=== PATIENT | female | born 1995 | race Caucasian/White ===

== ENCOUNTER → 2024-05-16 16:16 | Outpatient (CLI) | payer OTHER, SELFPAY ==
--- NOTE | 2024-05-16 16:20 | DI.US.S_ITS ---
PROCEDURE: US OB <= 14 WEEKS FETUS INDICATIONS: DATING AND VIABILITY OUTSIDE/PRIOR DATING DATA: Last menstrual period (LMP): 03/29/2024 LMP-based estimated date of delivery (ROXANE): 01/03/2025 First dating scan (date and location): 05/16/2024 Estimated date of delivery (ROXANE) from first dating scan: 01/06/2025 TECHNIQUE: Real-time scanning was performed of the fetus and maternal pelvic organs, with image documentation. COMPARISON: None. FINDINGS: Embryo: Single intrauterine gestational sac is seen with fetus and yolk sac seen. [place]-rump length measures 0.6 cm. Estimated gestational age based on current study is 6 weeks, 3 days. Heart rate: 120 beats per minute. Maternal organs: Right-sided corpus luteum is seen measures 2.1 x 1.7 x 1.9 cm in size. Left ovary is within normal limits. IMPRESSION: 1. Single live intrauterine gestation with fetus and yolk sac seen. heart rate is 120 beats per minute. Estimated gestational age is 6 weeks, 3 days. 2. Corpus luteum is seen in right ovary as above. We strive to produce accurate, complete, and clear reports of imaging services. To assist us in improving patient care, this report was composed using standard report templates and voice recognition software. Therefore, it may contain abnormal punctuation, insertions and/or omissions. Occasional wrong-word or sound-alike substitutions may occur. Though we review the report and make efforts to correct it, we do recommend that the report be read carefully in proper context to recognize any text inaccuracies. Dictated by: Danish Rodgers M.D. on 05/17/2024 at 12:04 Approved by: Danish Rodgers M.D. on 05/17/2024 at 12:06
== END ==
PROVIDERS: Referring Provider Nurse Practitioner Obstetrics & Gynecology; Visit Provider Nurse Practitioner Obstetrics & Gynecology
DX: O26.851 Spotting complicating pregnancy, first trimester (principal); O34.81 Maternal care for other abnormalities of pelvic organs, first trimester; N83.11 Corpus luteum cyst of right ovary; Z3A.01 Less than 8 weeks gestation of pregnancy
CPT/HCPCS: 76801; 76817

== ENCOUNTER → 2024-08-21 12:48 | Outpatient (CLI) | payer OTHER, SELFPAY ==
--- NOTE | 2024-08-21 | DI.US.S_ITS ---
PROCEDURE: US OB >= 14 WEEKS FETUS INDICATIONS: 20 week anatomy scan OUTSIDE/PRIOR DATING DATA: Last menstrual period (LMP): 03/29/2024 LMP-based estimated date of delivery (ROXANE): 01/03/2025 First dating scan (date and location): 05/16/2024 Estimated date of delivery (ROXANE) from first dating scan: 01/06/2025 The calculations are made using the clinical ROXANE of 01/03/2025. TECHNIQUE: Real-time scanning was performed of the fetus, with image documentation and biometric measurements. Endovaginal scanning: Not performed. COMPARISON: [facility], OB <= 14 WEEKS FETUS, 05/16/2024, 16:28. FINDINGS: General: A single living intrauterine gestation is present. Presentation: Vertex Placenta: Placental position is posterior, without previa. Amniotic fluid index: 12.0 cm, normal range is 5-24 cm. Single deepest vertical pocket is 3.5 cm. heart rate: 137 beats per minute. Maternal cervical canal: 3.2 cm long. Normal lower limit is 2.5 cm. biometrics: Biparietal diameter: 4.6 cm, 19 weeks 5 days Head circumference: 17.1 cm, 19 weeks 5 days Abdominal circumference: 15.4 cm, 20 weeks 4 days Femur length: 3.7 cm, 21 weeks 5 days Clinically estimated gestational age: 20 weeks 5 days Composite gestational age from present scan: 20 weeks 3 days Estimated weight and percentile: 389 g, 59th percentile Anatomic survey: Neuro: Ventricles are non-dilated at less than 10 mm. Cisterna magna is normal at 3-11 mm. Cerebellum is normal in size and morphology. Nuchal skin fold: Normal at less than 6 mm between 14-21 weeks gestational age. Face: Nose and lips, facial profile are normal. Spine: No evidence for spina bifida. Heart: 4-chambered heart is present, with normal ventricular outflow tracts. Diaphragm: Diaphragm is intact. Stomach: Left-sided stomach is present. Kidneys: No hydronephrosis. Normal is less than 5 mm in 2nd trimester, less than 7 mm in 3rd trimester. Cord: 3-vessel cord has orthotopic insertion. Bladder: Normal in size. Extremities: All 4 extremities identified. IMPRESSION: 1. Single live intrauterine with appropriate interval growth. 2. anatomic survey is within normal limits. Approved by: Hermilo Forman M.D. on 08/21/2024 at 19:30
== END ==
LOC: US 12:49
PROVIDERS: Referring Provider Advanced Practice Midwife; Visit Provider Advanced Practice Midwife
DX: Z34.92 Encounter for supervision of normal pregnancy, unspecified, second trimester (principal); Z3A.20 20 weeks gestation of pregnancy
CPT/HCPCS: 76811

== ENCOUNTER → 2024-09-17 07:24 | Outpatient (CLI) | payer OTHER, SELFPAY ==
[2024-09-17 08:41] LABS: Hematocrit 35.1 % (36-46); Hemoglobin 12.1 g/dL (12.0-16.0); Mean Corpuscular HGB Conc 34.4 % (30-36); Mean Corpuscular Hemoglobin 30.7 PG (26-34); Mean Corpuscular Volume 89.3 fL (80-100); Platelet Count 338 X10^3/uL (150-400); Red Blood Cell Count 3.93 X10^6/uL (4.0-5.2); Red Cell Distribution Width 13.3 % (11.6-14.8); White Blood Cell Count 8.8 X10^3/uL (4.5-11.0)
[2024-09-17 09:03] LABS: Glucose Fasting 90 mg/dL (70-100)
[2024-09-17 09:32] LABS: Thyroid Stimulating Hormone 2.65 uIU/mL (0.47-4.68)
[2024-09-17 09:33] LABS: Glucose 1 Hour 141 mg/dL (70-170)
[2024-09-17 09:50] LABS: Glucose Tol Interpretation INTERPRETATION
[2024-09-17 11:04] LABS: Glucose 2 Hour 91 mg/dL (70-140)
[2024-09-19 15:30] LABS: Free T4, Direct Thyroxine 1.18 ng/dL (0.78-2.19)
== END ==
PROVIDERS: Referring Provider Nurse Practitioner Obstetrics & Gynecology; Visit Provider Nurse Practitioner Obstetrics & Gynecology
DX: Z34.90 Encounter for supervision of normal pregnancy, unspecified, unspecified trimester (principal); Z13.1 Encounter for screening for diabetes mellitus; E03.9 Hypothyroidism, unspecified; Z3A.26 26 weeks gestation of pregnancy
CPT/HCPCS: 36415; 82951; 82952; 84436; 84439; 84443; 85027

== ENCOUNTER → 2024-12-25 14:19 | Outpatient (CLI) | payer OTHER, SELFPAY ==
--- NOTE | 2024-12-25 14:20 | DI.US.S_ITS ---
PROCEDURE: US OB LIMITED INDICATIONS: GROWTH AND BIOPHYSICAL FOR LGA DOPPLERS IF NEEDED OUTSIDE/PRIOR DATING DATA: Last menstrual period (LMP): 03/29/24. LMP-based estimated date of delivery (ROXANE): 01/03/25 First dating scan (date and location): 05/16/24 Estimated date of delivery (ROXANE) from first dating scan: 01/06/25. The calculations are made using the working ROXANE of 01/03/25. TECHNIQUE: Real-time scanning was performed of the fetus, with image documentation and biometric measurements. Biophysical profile was obtained Endovaginal scanning: No COMPARISON: [facility], OB LIMITED, 12/03/2024, 7:29. FINDINGS: General: A single living intrauterine gestation is present. Presentation: Vertex. Placenta: Placental position is posterior , without previa. Amniotic fluid index: 16.6 cm, normal range is 5-24 cm. Single deepest vertical pocket is 7.2 cm. heart rate: 135 beats per minute. Maternal cervical canal: Not well seen biometrics: Biparietal diameter: 9.2 cm, 37 weeks two days Head circumference: 33.2 cm 37 weeks six days Abdominal circumference: 36.8 cm, 39 weeks five days Femur length: 7.2 cm, 36 weeks six days Clinically estimated gestational age: 38 weeks five days Composite gestational age from present scan: 38 weeks 0 days Estimated weight and percentile: 3534 g, 64th percentile Biophysical profile: Tone: 0 points. Movement: 2 points. Respiration: 0 points. Largest pocket of fluid: 2 points. Umbilical artery Doppler: Ranging from 1.7-2.5. IMPRESSION: Single living intrauterine with estimated weight at the 64th percentile. Abnormal biophysical profile score, 4/8. Composite gestational age is five days behind the estimated gestational age. Normal amniotic fluid volume. Report alert called to the ordering provider. We strive to produce accurate, complete, and clear reports of imaging services. To assist us in improving patient care, this report was composed using standard report templates and voice recognition software. Therefore, it may contain abnormal punctuation, insertions and/or omissions. Occasional wrong-word or sound-alike substitutions may occur. Though we review the report and make efforts to correct it, we do recommend that the report be read carefully in proper context to recognize any text inaccuracies. Dictated by: Jessenia Avalos M.D. on 12/25/2024 at 17:31 Approved by: Jessenia Avalos M.D. on 12/25/2024 at 17:39
== END ==
LOC: US 14:20
PROVIDERS: Referring Provider Advanced Practice Midwife; Visit Provider Advanced Practice Midwife
DX: O26.843 Uterine size-date discrepancy, third trimester (principal); Z3A.38 38 weeks gestation of pregnancy
CPT/HCPCS: 76815; 76820

== ENCOUNTER 2024-12-25 18:56 | Inpatient (IN) | payer OTHER, SELFPAY ==
--- NOTE | 2024-12-25 19:31 | PM.OBHP.1 ---
OB HPI Date/Time Date of admission: 12/25/24 Date Patient Seen: 12/25/24 Time Patient Seen: 21:00 History of Present Condition Chief complaint: NST : 3 Para: 0 Estimated Date of Delivery: 01/03/25 Estimated Gestational Age (weeks): 38w5d Narrative: Phani Arnold is a 29 year old female at 38w5d by LMP with concordant early U/S, presents for evaluation after abnormal BPP 07/24 today. +FM with occasional mild cramping. No vaginal bleeding or leaking of fluid. has been uncomplicated under the care of Marti. Phani is accompanied by her supportive partner, Lee. She is planning a low intervention . Indications Indication for induction OB: other (BPP 48) History of Present care: good care, initiated at week # (9w4d), number of visits (9) and pounds weight gain (52) Dating criteria: LMP confirmed by 1st trimester US Ultrasounds: normal 1st trimester US and normal mid trimester US Obstetrical complications: none Medical complications: none Preadmission Labs Blood type: B (+) positive -: Antibody screen: negative, GBS status: positive, HBsAG: negative, HIV: negative and RPR/VDLR: negative -: Chlamydia screen: not detected and Gonorrhea screen: not detected -: Rubella: immune and Varicella: immune HCT: 35.1 HCAB: negative 3 hr GTT: 2 hr (90, 141, 91) Prior (ies) Hx # Term Pregnancies: 0 Hx # Pregnancies: 0 Number of Living Children: 0 Multiple births: 0 Spontaneous abortions: 2 Ectopic pregnancies: 0 Elective abortions: 0 Evaluation Evaluation Baseline heart rate: 130 Variability: Moderate (6-25) monitor accelerations: Present Monitor Decelerations: Absent Contraction Frequency (minutes): 0 Category of Tracing: Reactive Status: Category l Dilation: 1-2 cm (fingertip) Effacement: 60-70% station: -2 Position of cervix: posterior Consistency: soft Beck score: 6 PFSH Medical History (Updated 12/25/24 @ 19:44 by Cecilia Ramirez CNM) Hx of abnormal cervical Pap smear Social History Smoking Status: Former smoker Meds Home Medications and Allergies Home Medications ?Medication ?Instructions ?Recorded ?Confirmed ?Type aspirin 81 mg chewable tablet 81 mg PO DAILY 12/25/24 12/25/24 History (Vitor Chewable Low Dose Aspirin) vitamin-ferrous fumarate 1 tab PO DAILY 12/25/24 12/25/24 History 28 mg iron-folic acid 800 mcg tablet ( Vitamins with Minerals) Allergies Allergy/AdvReac Type Severity Reaction Status Date / Time Pertussis Vaccines Allergy Unknown Verified 12/25/24 19:39 adhesive tape Allergy Blister Verified 12/25/24 19:39 bee sting Allergy Severe Hives Uncoded 12/25/24 19:39 Review of Systems Review of Systems ROS: Yes All systems reviewed with the patient and are negative except as otherwise documented OB Exam Vital signs Blood Pressure: 135/73 Pulse Rate: 98 Temperature: 97.5 F (temporal) Resp Effort & Inspection: normal respiratory effort and able to speak in complete sentences Auscultation: clear to auscultation bilaterally Cardio Rate: regular rate Rhythm: regular rhythm Heart Sounds: S1 normal and S2 normal Extremities Lower extremity: Yes edema Laterality: bilateral edema degree: 2+ Presentation: vertex Objective Labs 12/25/24 20:06 12/25/24 20:06 Assessment and Plan Assessment and Plan Assessment and Plan narrative: Assessment: Early Term [facility] IOL for concer for status (BPP 4/8) GBS prophylaxis indicated Mild anemia RNST Plan: Counseled on recommendation for IOL for concern for status and Rhylie agreed, informed consent obtained. Discussed options for cervical ripening (Gross vs Cervadil) with associated R/B/A and Rhylie chose a Gross balloon. Admit for IOL and insert gross ballon for mechanical dialtion overnight. Routine labor orders with ampicillin for GBS prophylaxis once in active labor or ROM. NST Q4hr Activity as tolerated. Active management of the third stage of labor. Reassess once balloon is out or at 7am, whichever comes first. Time-Based Coding :: [TOTAL MINUTES] spent with patient and on the chart (including review of chart, obtaining history, exam, reviewing outside data, placing orders, documenting exam and treatment plan, and counseling patient) on [DATE].
[2024-12-25 20:16] LABS: Protein (Total) Urine Random 12 mg/dL (0-12); Protein Creatinine Ratio Urine 0.23 GRAM/24H
[2024-12-25 20:19] VITALS: BP 135/73; PULSE 98; TEMP 36.4
[2024-12-25 20:22] LABS: Add Manual Diff / Slide Review NO; Hematocrit 32.8 % (36-46); Hemoglobin 11.0 g/dL (12.0-16.0); Lymphocytes Absolute Auto 1800 /uL (1100-4500); Mean Corpuscular HGB Conc 33.4 % (30-36); Mean Corpuscular Hemoglobin 28.7 PG (26-34); Mean Corpuscular Volume 85.8 fL (80-100); Platelet Count 342 X10^3/uL (150-400)
[2024-12-25 20:39] LABS: Alanine Aminotransferase 15 IU/L (<35); Albumin 3.5 g/dL (3.5-5.0); Albumin Globulin Ratio 1.1 (1.0-2.8); Alkaline Phosphatase 138 U/L (38-126); Blood Urea Nitrogen 8 mg/dL (7-17); Calcium 9.1 mg/dL (8.4-10.2); Carbon Dioxide 20 mmol/L (22-32); Chloride 106 mmol/L (98-107); Estimated Glomerular Filt Rate > 60 mL/min (>60); Globulin 3.3 g/dL (1.7-4.1); Glucose 98 mg/dL (70-99); HEMOLYSIS < 15 (0-50); Potassium 4.0 mmol/L (3.4-5.1); Sodium 134 mmol/L (137-145); Total Protein 6.8 g/dL (6.3-8.2); Uric Acid 4.6 mg/dL (2.5-6.2)
[2024-12-25 20:55] VITALS: BP 134/77
--- NOTE | 2024-12-26 07:09 | PM.OBPNLAB ---
Date/Time Date Patient Seen: 12/26/24 Time Patient Seen: 07:00 Pain Control Comments: Phani has been feeling stronger, irregular contractions throughout the night. Did not get a long stretch of sleep, but has taken a few naps. Partner remains supportive at her side. VS: 126/55, P 96 bpm, T 36.4 C Temporal Pelvic Exam Dilation (cm): 3.5 station: -2 Amniotic membrane status: Intact Comments: Prieto balloon remains in place, palpated in the os Contractions Date/Time contractions began: 12/26/2024 0000 Monitor mode: External Contraction frequency (min): 4 (2-6) Contraction duration (min): 1 Contraction pattern: Irregular Contraction intensity: Mild Status status: Category l Heart Rate Baseline: 125 Monitor Accelerations: Present Monitor Decelerations: Late (rare) Monitor Variability: Moderate Assessment and Plan Assessment: induction ongoing Plan: continuous present management Comments: Assessment: Early Term [facility] IOL for concern for status (BPP 4/8) GBS prophylaxis indicated Mild anemia Plan: Given that Prieto balloon is nearly out, will continue with this method for cervical ripening. RN to check again at 0800. Discussed starting pitocin for labor progression, once Prieto balloon is out, with associated R/B/A and Rhylie agrees. Routine labor orders with ampicillin for GBS prophylaxis once in active labor or ROM. Continuous monitoring, per pitocin protocol. Activity as tolerated. Active management of the third stage of labor. Reassess in 4-5 hours or sooner, PRN.
--- NOTE | 2024-12-26 12:32 | PM.OBPNLAB ---
Date/Time Date Patient Seen: 12/26/24 Time Patient Seen: 12:32 Pain Control Comments: Phani is resting in bed. She did get about a 1.5 hour nap after we saw her this AM. She is not feeling contractions. is at bedside being supportive. VS: 115/62, P: 104, T: 36.2 C temporal. Pelvic Exam Dilation (cm): 6 Effacement (%): 80 station: -2 Amniotic membrane status: Intact Comments: Prieto balloon removed from vagina prior to CE. Contractions Monitor mode: External Contraction frequency (min): 4 (2-6) Contraction pattern: Irregular Contraction intensity: Mild Status status: Category l Heart Rate Baseline: 135 Monitor Accelerations: Present Monitor Decelerations: Absent Monitor Variability: Moderate Assessment and Plan Assessment: induction ongoing Plan: begin patient augmentation (pitocin per protocol) Comments: Begin GBS prophylaxis once regular contraction pattern is re-established. Reassess in 4-5 hours or sooner, PRN.
[2024-12-26] MEDS: LACTATED RINGERS 1,000 ML 100 ML IV ×2 (13:02→21:13)
[2024-12-26] MEDS: AMPICILLIN 2,000 MG in SODIUM CHLORIDE 0.9% 100 ML 200 MG IV (13:03)
[2024-12-26] MEDS: OXYTOCIN PREMIX 30 UNIT/500 ML PLAST..BAG IV (13:24)
--- NOTE | 2024-12-26 17:17 | P.PNOB_ITS ---
Date/Time Date Patient Seen: 12/26/24 Time Patient Seen: 17:18 Pain Control Comments: Phani is sitting up in bed, she is having some contractions but they do not feel as intense as they did last night with the gross balloon. Her partner is still beside and supportive. VS: BP 118/64, P: 95, T: 36.4 C temporal Pelvic Exam Dilation (cm): 6 Effacement (%): 60 station: -2 Amniotic membrane status: Intact Contractions Monitor mode: External Pitocin rate (mU/min): 9 Contraction frequency (min): 4 (2-6) Contraction duration (min): 1 Contraction pattern: Irregular Contraction intensity: Mild Status status: Category l Heart Rate Baseline: 130 Monitor Accelerations: Present Monitor Decelerations: Absent Monitor Variability: Moderate Assessment and Plan Assessment: induction ongoing Plan: continuous present management Comments: Offered AROM and explained R/B/A, Phani declines at this time. Reassess in 4 hours or sooner PRN
--- NOTE | 2024-12-26 21:11 | PM.OBPNLAB ---
Date/Time Date Patient Seen: 12/26/24 Time Patient Seen: 21:11 Pain Control Comments: Phani is sitting in bed comfortably, and talking. She is having contractions but they are not as intense as they were last night with the gross balloon in place. She did take a nap. Her is still at the bedside and supportive. VS:123/71 P:83 bmp, T:36.3 temporal Pelvic Exam Dilation (cm): 6 Effacement (%): 80 station: -2 Amniotic membrane status: Intact Comments: CE deferred Contractions Monitor mode: External Pitocin rate (mU/min): 18 Contraction frequency (min): 4 (2-6) Contraction pattern: Irregular Contraction intensity: Mild Status status: Category l Heart Rate Baseline: 140 Monitor Accelerations: Present Monitor Decelerations: Absent Monitor Variability: Moderate Assessment and Plan Assessment: induction ongoing Plan: continuous present management Comments: Recommended AROM, Phani declines at this time, she would like to continue with pitocin titration. Encouraged upright movement. Will start ampicillin once she is breathing through contractions or ROM. Reassess in 3-4 hours or sooner PRN.
--- NOTE | 2024-12-27 01:15 | PM.OBPNLAB ---
Date/Time Date Patient Seen: 12/27/24 Time Patient Seen: 01:00 Pain Control Pain control: tolerating well Comments: Phani has been ambulating and trying to be upright and moving since her last exam. Frustrated that contractions remain mild and open to AROM at this time. VS: BP 111/56, HR 88bpm, T 36.4C Temporal Pelvic Exam Dilation (cm): 6 Effacement (%): 80 station: -2 Amniotic membrane status: Ruptured (AROM, clear) Comments: cervix is edematous Contractions Monitor mode: External Pitocin rate (mU/min): 28 Contraction frequency (min): 4 (2-6) Contraction duration (min): 1 Contraction pattern: Irregular Contraction intensity: Mild Status status: Category l Heart Rate Baseline: 140 Monitor Accelerations: Present Monitor Decelerations: Absent Monitor Variability: Moderate Assessment and Plan Assessment: induction ongoing Plan: continuous present management Comments: Reduced pitocin in half to 14mu/min after AROM. Encouraged her to remain upright for the next 30 minutes. Start ampicillin now. If cervix remains puffy at next exam, will give diphenhydramine. Reassess in 4 hours or sooner, PRN.
[2024-12-27] MEDS: AMPICILLIN 1,000 MG in SODIUM CHLORIDE 0.9% 100 ML 200 MG IV ×5 (01:25→18:03)
--- NOTE | 2024-12-27 05:13 | PM.OBPNLAB ---
Date/Time Date Patient Seen: 12/27/24 Time Patient Seen: 04:50 Pain Control Pain control: tolerating well and other Comments: Phani has been breathing and moaning through contractions for about two hours. She tried the tub earlier and said it helped a little bit. Her partner is at the bedside providing support. VS; BP: 113/62, P: 93 bmp, T: 36.6 C temporal Pelvic Exam Dilation (cm): 7 Effacement (%): 80 station: -2 Amniotic membrane status: Ruptured (AROM, clear) Comments: cervix remains edematous Contractions Monitor mode: External Pitocin rate (mU/min): 14 Contraction frequency (min): 4 (2-6) Contraction pattern: Regular Contraction intensity: Strong/Firm Status status: Category l Heart Rate Baseline: 150 Monitor Accelerations: Present Monitor Decelerations: Absent Monitor Variability: Moderate Assessment and Plan Assessment: active labor Plan: continuous present management Comments: Administer diphenhydramine for cervical edema Encouraged RN to continue to titrate pitocin to adequate contraction pattern. Reassess in 4 hours or sooner PRN
[2024-12-27] MEDS: diphenhydrAMINE 50 MG/ML VIAL 25 MG IV (05:31)
[2024-12-27] MEDS: LACTATED RINGERS 1,000 ML 100 ML IV ×2 (07:02→14:11)
--- NOTE | 2024-12-27 08:08 | PM.OBPNLAB ---
Date/Time Date Patient Seen: 12/27/24 Time Patient Seen: 08:00 Pain Control Pain control: epidural Comments: Comfortable after epidural placement. Requested epidural around 6am and difficult placement necessitated 3 attempts and turning off the pitocin. Continues to leak clear fluid. VS: BP 110/59, HR 95bpm, T 36.7C Temporal Pelvic Exam Dilation (cm): 6 Effacement (%): 80 station: -2 Amniotic membrane status: Leaking (clear) Comments: ROM x 7 hour without sx of infection. GBS adequately treated. Contractions Monitor mode: External Pitocin rate (mU/min): 0 Contraction frequency (min): 4 (3-6) Contraction duration (min): 1 Contraction pattern: Regular Contraction intensity: Moderate Status status: Category l Heart Rate Baseline: 155 Monitor Accelerations: Present Monitor Decelerations: Absent Monitor Variability: Moderate Assessment and Plan Assessment: active labor Plan: continuous present management Comments: Restart pitocin titration at 3 mu/min Recommend frequent position changes with peanut ball Prieto placed after epidural Reassess in 4 hours or sooner PRN Will consider IUPC if no change at next exam
--- NOTE | 2024-12-27 09:32 | PM.AN.REGBLK ---
[facility] <Lisa Parker, DO - Last Filed: 12/28/24 08:12> Pre-procedure Procedure: Continuous Lumbar Epidural for L&D (with dural puncture) Attending OB provider: Cecilia Ramirez PMH/ROS narrative: 29yo induced due to BPP results, now in labor at 7 cm on last check and requesting epidural. BMI 46. See pre-anesthesia evaluation for further details. ASA Class: III Labs: Hct 32.8 % (36-46) L 12/25/24 20:06 Plt Count 342 X10^3/uL (150-400) 12/25/24 20:06 Medications: Current Medications Generic Name Dose Route Start Last Admin Trade Name Freq PRN Reason Stop Dose Admin Calcium Carbonate 1,000 mg 12/25/24 19:28 Calcium Carbonate 500 Mg Tab PO Q2HR PRN Dyspepsia Carboprost Tromethamine 250 mcg 12/25/24 19:28 Carboprost 250 Mcg/Ml Ampul IM Q90M PRN Bleeding Diphenhydramine HCl 25 mg 12/27/24 07:57 Diphenhydramine 50 Mg/Ml Vial IV Q10M PRN Pruritis Ephedrine Sulfate 10 mg 12/27/24 07:57 Ephedrine 50 Mg/Ml Vial IV Q5M PRN Blood pressure decrease more than 20% of baseline. Fentanyl 100 mcg 12/25/24 19:28 Fentanyl 100 Mcg/2 Ml Inj IV Q1H PRN Pain, Severe (7-10) Oxytocin/Lactated Ringer's 30 unit in 500 mls @ 200 mls/hr 12/25/24 19:28 Oxytocin Premix IV CONT PRN Bleeding Protocol Tranexamic Acid 1,000 mg/ 100 mls @ 600 mls/hr 12/25/24 19:28 Sodium Chloride IV NOW PRN Bleeding Ampicillin Sodium 1,000 mg/ 100 mls @ 200 mls/hr 12/25/24 23:30 12/27/24 05:25 Sodium Chloride IV 200 mls/hr Q4H RUBI Administration Oxytocin/Lactated Ringer's 30 unit in 500 mls @ 2 mls/hr 12/26/24 13:22 12/26/24 13:24 Oxytocin Premix IV 2 milliunit/min TITRATE RUBI 2 mls/hr Protocol Administration 2 MILLIUNIT/MIN FENT 2MCG/ML BUPIV 0.125% EPI 200 mcg in 100 mls @ 6 mls/hr 12/27/24 08:00 Fentanyl/Bupiv/Ns 2mcg/Ml - 0.125% EPIDURAL CONT RUBI Lidocaine HCl 20 ml 12/25/24 19:28 Lidocaine 1% 20 Ml INJ INTRA-OP PRN Post Delivery Methylergonovine Maleate 0.2 mg 12/25/24 19:28 Methylergonovine 0.2 Mg Tablet PO Q6HR PRN Heavy Bleeding Methylergonovine Maleate 0.2 mg 12/25/24 19:28 Methylergonovine 0.2 Mg/Ml Vial IM NOW PRN Bleeding Metoclopramide HCl 10 mg 12/27/24 07:58 Metoclopramide 10 Mg/2 Ml Inj IV 12/28/24 07:58 Q4H PRN Nausea Mineral Oil 30 ml 12/25/24 19:28 Mineral Oil 30 Ml Udc TOP PRN PRN Version Misoprostol 800 mcg 12/25/24 19:28 Misoprostol 200 Mcg Tablet SD NOW PRN Bleeding Misoprostol 400 mcg 12/25/24 19:28 Misoprostol 200 Mcg Tablet SL NOW PRN Bleeding Nalbuphine HCl 2.5 mg 12/27/24 07:57 Nalbuphine 20 Mg/Ml Ampul IV Q10M PRN Pruritis Naloxone HCl 0.2 mg 12/25/24 19:28 Naloxone 0.4 Mg/Ml Vial IV Q2MIN PRN Opiate Reversal Ondansetron HCl 4 mg 12/25/24 19:28 Ondansetron 4 Mg/2 Ml Inj IV Q4HR PRN Nausea And Vomiting Ondansetron HCl 4 mg 12/27/24 07:58 Ondansetron 4 Mg/2 Ml Inj IV 12/28/24 07:58 Q6HR PRN Nausea Oxytocin 10 unit 12/25/24 19:28 Oxytocin 10 Unit/Ml Vial IM NOW PRN Bleeding Allergies: Allergies Allergy/AdvReac Type Severity Reaction Status Date / Time Pertussis Vaccines Allergy Unknown Verified 12/26/24 16:04 adhesive tape Allergy Blister Verified 12/26/24 16:04 bee sting Allergy Severe Hives Uncoded 12/26/24 16:04 Procedure Insertion date: 12/27/24 Insertion time: 07:22 Prep/Local: 1% lidocaine (Chloraprep) Interspace: L3-4 Patient position: sitting Needle: 18 gauge Hustead (27g Pencan for dural puncture) Loss of resistance with: saline WAYNE at (cm): 8 Catheter placed at SKIN (cm): 15 Catheter in SPACE (cm): 7 Insertion: No CSF, No Blood, No Paresthesia with insertion, No Paresthesia with injection and No Test dose reaction Initial Medications TEST DOSE time: 07:23 TEST DOSE: 1.5% lidocaine with epinephrine 1:200k (mL): 3 BOLUS DOSE time: 07:24 BOLUS DOSE (mL): 2 BOLUS DOSE med: other (Same as test dose via epidural. Also gave 0.5 ml of 2% lido intrathecally. ) Infusion INFUSION: 0.125% bupivacaine and with fentanyl 2 mcg/mL Initial rate (mL/hr): 8 Subsequent interventions: Difficult placement requiring three attempts with multiple redirections. However, pt felt comfortable soon after placement, able to move BLE, and fell asleep before epidural infusion started at 07:40. Uziel 14:52 - Pt requests epidural bolus. On arrival, she is moaning softly near constantly; I'm unable to tell when she is having a contraction, but she appears uncomfortable. She reports the epidural is somewhat one-sided, and she feels more pain on the left. She is left side down during my visit. Epidural bolused with 10 ml of 2% lido PF. Infusion pump increased from 8 to 10 ml/hr. Uziel Post-procedure Anesthesia date START: 12/27/24 Anesthesia time START: 06:40 Anesthesia date END: 12/28/24 Anesthesia time END: 19:55 Post-procedure Anesthesia Assessment: Yes CV function: HR/BP stable, Yes Resp function: RR/sat/airway adequate, Yes Post-op hydration adequate, Yes Pain control adequate, Yes Nausea & vomiting absent, Yes Temperature > 36 C, Yes Mental status appropriate and No Anesthesia complications <Gilma Dunham CRNA - Last Filed: 01/17/25 17:52> Infusion Subsequent interventions: Difficult placement requiring three attempts with multiple redirections. However, pt felt comfortable soon after placement, able to move BLE, and fell asleep before epidural infusion started at 07:40. Uziel 14:52 - Pt requests epidural bolus. On arrival, she is moaning softly near constantly; I'm unable to tell when she is having a contraction, but she appears uncomfortable. She reports the epidural is somewhat one-sided, and she feels more pain on the left. She is left side down during my visit. Epidural bolused with 10 ml of 2% lido PF. Infusion pump increased from 8 to 10 ml/hr. Uziel 1700 Pt left side down moaning. States has left anterior low abdominal pain. 10cc 2% lido bolus given. Epidural infusion increased to 12cc/h 1830 Pt has just started pushing-is uncomfortable continues to be left sided anterior low abdominal pain bolus given-100mcg fentanyl and 5cc 2%lido
--- NOTE | 2024-12-27 12:09 | PM.OBPNLAB ---
Date/Time Date Patient Seen: 12/27/24 Time Patient Seen: 12:00 Pain Control Pain control: epidural Comments: Phani has been doing position changes Q30min. She is comfortable with the epidural but it is working more on her right side than left, using PCEA. Her partner is by her side being supportive. VS: BP 98/54, P: 85, T 36.4C temporal Pelvic Exam Dilation (cm): 6 Effacement (%): 90 station: -2 Amniotic membrane status: Leaking (clear) Comments: coronal suture palpated on exam with parietal bones overriding the frontal bones, ROT/ROP position Contractions Monitor mode: External Pitocin rate (mU/min): 17 Contraction frequency (min): 4 (untraceable intermittently due to position) Contraction pattern: Irregular Contraction intensity: Moderate Status status: Category l Heart Rate Baseline: 135 Monitor Accelerations: Present Monitor Decelerations: Absent Monitor Variability: Moderate Assessment and Plan Assessment: active labor, induction ongoing and other ( malpresentation, ROM x 11hrs without sx of infection) Plan: continuous present management Comments: Continue pitiocin titration per protocol Recommend more exaggerated position changes: left side lying release and left exaggerated omalley Consider IUPC if toco remains difficult to trace contractions Reassess in 4 hours or sooner PRN
[2024-12-27] MEDS: FENT 2MCG/ML BUPIV 0.125% EPI 200 MCG/100 ML PLAST..BAG 6 MCG EPIDURAL (14:12)
--- NOTE | 2024-12-27 15:00 | PM.OBPNLAB ---
Date/Time Date Patient Seen: 12/27/24 Time Patient Seen: 15:00 Pain Control Pain control: epidural Comments: Phani has been doing position changes Q30min. She is comfortable with the epidural but it is working more on her right side than left, using PCEA. Her partner is by her side being supportive. VS: BP 11/55, P: 106, T 36.4 C temporal Pelvic Exam Dilation (cm): 8 Effacement (%): 90 station: -1 Amniotic membrane status: Leaking (clear) Contractions Monitor mode: External Pitocin rate (mU/min): 22 Contraction frequency (min): 4 (2-6) Contraction pattern: Irregular Contraction intensity: Moderate Status status: Category l Heart Rate Baseline: 140 Monitor Accelerations: Present Monitor Decelerations: Absent Monitor Variability: Moderate Assessment and Plan Assessment: active labor and induction ongoing Plan: continuous present management Comments: Reassess in 4 hours or sooner PRN
[2024-12-27] MEDS: OXYTOCIN PREMIX 30 UNIT/500 ML PLAST..BAG IV (16:54)
--- NOTE | 2024-12-27 20:20 | PM.OBPRVD ---
Events: Labor Induction, Labor Augmentation and Other (BPP 4/8 on 12/25/2024) Labor & Delivery Delivery date: 12/27/24 Delivery Time: 07:55 Cervical ripening method: per Gross bulb protocol Induction method: per pitocin protocol (AROM) Delivery monitor: external FHT and external uterine Route of delivery: L&D Laceration Description: Superficial (Right labial and vaginal) Quantitative Blood Loss: 75 Anesthesia Type: Epidural Narrative: Medical IOL with gross ballon, pitocin max dose of 30mu/min, and AROM resulted in a slow but steady labor. Epidural was placed and it worked for a while more on the right side than the left. Phani received two epidural boluses during labor for comfort. She was found to be complete and started pushing after repeated complaint of increased pain. She was tiring out quickly so another bolus for the epidural was given and pushing was restarted. She did well with coaching and encouragement. NSVB of baby girl in direct OA position. There was no nuchal cord and the shoulders delivered without additional maneuvers. Strong maternal pushing effort continued to be required at the 's chest so CNM assisted with delivery of the 's left arm. was placed immediately on maternal chest for skin to skin. Pitocin was started at 334 ml/hr. for AMTSL. After cessation of pulsation, the cord was double clamped by CNM and cut by FOB. Cord blood hold sample was collected. An intact, Schultze placenta was delivered with gentle cord traction. Fundus was immediately firm and vaginal bleeding was scant. Vagina and perineum were inspected and superficial right labial and vaginal lacerations were found with no repair indicated. Mom and baby were skin to skin as I left the room. Gilma Valenzuela RN, SNM with direct supervision by COLLIN Theodore, BAYRON Baby 1: gender: Female Presentation: vertex Placenta delivery description: Spontaneous Cord Vessel Description: 3 Vessels score (1 min): 9 score (5 min): 9 weight: 3.818 kg Plan for aftercare: Routine care
[2024-12-27] MEDS: DERMOPLAST SPRAY 20% 60 ML 1 SPRAY TOP (21:15)
[2024-12-27] MEDS: LANOLIN OINT 7 GM 1 APPLIC TOP (21:16)
[2024-12-27] MEDS: KETOROLAC 30 MG/ML VIAL IV (21:16)
[2024-12-28] MEDS: IBUPROFEN 600 MG TABLET PO ×2 (06:18→12:23)
--- NOTE | 2024-12-28 09:10 | P.DS_ITS ---
Discharge Providers Provider Date of admission: 12/25/24 18:56 Discharge Date: 12/28/24 Consults: 12/27/24 20:54 Consult to Finished Stock Inspector Routine Comment: Discharge provider: Cecilia Ramirez CNM Summary Hospital Course Date Patient Seen: 12/28/24 Time Patient Seen: 09:15 Diagnoses: O80 Hospital Course: Labor and : IOL due to BPP 4/8 with gross balloon, pitocin max dose of 30 mu/min, and AROM resulted in a NSVB of a baby girl. Superficial right labial and vaginal lacerations. Minimal bleeding . day one: Bleeding light, abmulating indepedently, eating, and is going well. Ready for discharge home today with her new baby. Peripartum Data Infant Delivery Method: Natural Vaginal Laceration Description: Superficial (right labial and vaginal) [place] 1: Gender: Female Disposition of : home Discharge Diagnosis (1) Encounter for full-term uncomplicated delivery: Start Date: 12/27/24 Start Time: 19:55 Status: Acute Problem Details: Routine course Status at Discharge Cognitive/behavioral status at discharge: oriented and calm Functional status at discharge: independent ambulation Overall status at discharge: patient is progressing back to baseline Time Spent with Patient Time attestation: Total time spent providing and/or coordinating discharge services: Time spent: Less than 30 minutes Objective Labs 12/25/24 20:06 12/25/24 20:06 Exam Vital Signs (past 8 hours): BP: 110/57, P: 82, T 98.6 F temporal Resp Effort & Inspection: normal respiratory effort and able to speak in complete sentences Other: Fundus firm at U-1, lochia scant, perineum intact Psych Appearance: grossly normal Mental Status: mental status grossly normal Speech and Movement: speech and movement normal Mood: congruent mood Affect: normal affect Discharge Plan Discharge Plan Patient Disposition: Home Discharge orders & Medications Prescriptions: New ibuprofen 600 mg Tablet 600 mg PO Q6H 14 Days Qty: 56 0RF Continued vit-iron fum-folic ac [ Vitamin with Minerals] 28 mg iron- 800 mcg tablet 1 tab PO DAILY Discontinued aspirin [Vitor Chewable Aspirin] 81 mg tablet,chewable 81 mg PO DAILY Follow up/Referrals: Cecilia Ramirez CNM [[employer], LCSW] Referral Note: Please follow up w/ Cecilia Ramirez CNM for your 6 week appointment as listed in your email/text! :) Diet/Activity/Treatments Diet: Diet as Tolerated and Regular Activity: bed rest x 2 weeks, no heavy lifting x4 weeks,pelvic rest x 6 weeks Skin/Wound/Dressing Care Report to your healthcare provider any signs of infection, such as:: chills, fever, increased pain, unusual drainage and unusual redness Visit Report/Discharge Packet Instructions: DI for Hemorrhage, DI for Depression Stand Alone Forms: Discharge: Care, Patient Portal/API, Stroke Signs & Symptoms
[2024-12-28] MEDS: ACETAMINOPHEN 325 MG TABLET 650 MG PO (12:22)
== END 2024-12-28 17:28 | disposition home or self-care (01) | DRG 807 ==
PROVIDERS: Admitting Provider Nurse Practitioner Obstetrics & Gynecology; Referring Provider Nurse Practitioner Obstetrics & Gynecology; Visit Provider Nurse Practitioner Obstetrics & Gynecology
DX: O99.824 Streptococcus B carrier state complicating childbirth (principal); Z37.0 Single live birth; Z3A.38 38 weeks gestation of pregnancy
CPT/HCPCS: 36415; 59050; 76815; 76820; 80053; 84550; 85025; 86850; 86900; 86901; G0379; J0290; J1200; J1885; J2590; J3010

== ENCOUNTER → 2025-01-21 13:34 | Outpatient (CLI) | payer OTHER, SELFPAY ==
[2025-01-21 15:28] LABS: Free T4, Direct Thyroxine 0.95 ng/dL (0.78-2.19)
[2025-01-21 15:41] LABS: Thyroid Stimulating Hormone 1.64 uIU/mL (0.47-4.68)
== END ==
PROVIDERS: Referring Provider Nurse Practitioner Obstetrics & Gynecology; Visit Provider Nurse Practitioner Obstetrics & Gynecology
DX: O92.70 Unspecified disorders of lactation (principal)
CPT/HCPCS: 36415; 84146; 84439; 84443